=== PATIENT | female | born 1980 | race African-American/Black ===

== ENCOUNTER 2021-03-04 12:32 | Outpatient (CLI) | payer OTHER, SELFPAY ==
--- NOTE | ~2021-03-04 | MM_ITS ---
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 CAD analysis was submitted and interpreted. COMPARISON: No prior mammogram is available for comparison at this institution. BREAST PARENCHYMAL COMPOSITION: The breasts are almost entirely fatty. FINDINGS: There is no evidence of suspicious mass, calcification, or architectural distortion to sugg est malignancy in either breast. There has been no suspicious interval change. IMPRESSION: 1. No mammographic evidence of malignancy. 2. Recommend routine screening mammography in one year. BI-RADS Category 1: Negative Reviewed, dictated and finalized at location A.
== END 2021-03-04 12:33 | disposition home or self-care (01) ==
PROVIDERS: PCP Internal Medicine; Visit Provider Student in an Organized Health Care Education/Training Program
DX: Z12.31 Encounter for screening mammogram for malignant neoplasm of breast (principal)
CPT/HCPCS: 77063; 77067

== ENCOUNTER 2021-11-19 11:00 | Outpatient (RCR) | payer OTHER, SELFPAY ==
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
--- NOTE | 2021-12-04 14:13 | PCPTNOTE ---
Patient no showed to appointment and 20 minutes after appointment to say she couldn't make it due to family emergency.
--- NOTE | 2021-12-11 08:57 | PCPTNOTE ---
Admitting Provider: Attending Provider: Lenin Lorenz, Patient:Bhupinder Fuller Date of :1980 Physical Therapy Discharge Summary Patient has not returned for any further treatments since 11/19/2021, therefore she will be discharged at this time. Patient?s initial visit was on 11/11/2021 10:30 and she had a total of 3 visits. The goals have been not met due to limited therapy visits. Thank you for referring this patient to [facility]. Please review, sign, date and return this discharge summary MONICA. I have been updated about the patient's current status and I agree with discharge from the above service at this time. Referring Physician Date
== END 2021-12-12 09:42 | disposition home or self-care (01) ==
LOC: ANHPT 11:00
PROVIDERS: PCP Internal Medicine; Visit Provider Internal Medicine
DX: M54.50 Low back pain, unspecified (principal)
CPT/HCPCS: 97014; 97110; 97112; 97140; 97161; 97530; G0283

== ENCOUNTER 2022-07-24 13:20 | Outpatient (CLI) | payer OTHER, SELFPAY ==
[2022-07-24 15:03] LABS: HIV 1/2 Ab P24 Ag Result Negative (Negative)
[2022-07-24 15:08] LABS: Hepatitis B Surface Antigen Negative (Negative)
[2022-07-24 15:26] LABS: Hepatitis C Virus Antibody Negative (Negative)
[2022-07-27 09:18] LABS: Rapid Plasma Reagin Non-Reactive (NonReactive)
[2022-07-30 17:34] LABS: HSV 1 IgM Screen Negative (Negative); HSV 2 IgM Screen Negative (Negative)
== END 2022-07-24 13:21 | disposition home or self-care (01) ==
LOC: ANHLAB 13:20
PROVIDERS: PCP Internal Medicine; Visit Provider Student in an Organized Health Care Education/Training Program
DX: Z20.2 Contact with and (suspected) exposure to infections with a predominantly sexual mode of transmission (principal)
CPT/HCPCS: 36415; 86592; 86695; 86696; 86703; 86803; 87340; 87491; 87591; 87661; G0432

== ENCOUNTER 2022-08-26 12:22 | Outpatient (CLI) | payer OTHER, SELFPAY | END 2022-08-26 12:23 | disposition home or self-care (01) | LOC: ANHLAB 12:23 | PROVIDERS: PCP Internal Medicine; Visit Provider Obstetrics & Gynecology | DX: Z00.00 Encounter for general adult medical examination without abnormal findings (principal) | CPT/HCPCS: 36415; 86850; 86900; 86901 ==

== ENCOUNTER 2022-11-05 13:30 | Outpatient (RCR) | payer OTHER, SELFPAY ==
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
--- NOTE | 2022-10-29 12:34 | PCPTNOTE ---
Patient called & cancelled scheduled appointment this date due to not being able to make it.
--- NOTE | 2022-11-05 17:40 | PTOPREEVAL ---
Assessment and note entered by Wes Estrada, PT Evaluation Information Assessment Status Re-evaluation Diagnosis Pain in R knee Onset 1 year ago Subjective Information Patient has had an appointment with her orthopedic doctor since starting therapy ans they write for new orders to focus on the R greater trochanter. Patient now using a straight cane to try to take stress off the RLE. Patient reports it is feeling better, but she thinks the next time she sees her orthopedic doctor they are going to do an injection because of bursitis. Reported Pain Level Pain Score 6: Self Report Assessment PT Clinical Summary Bhupinder is a 42 year old female coming into the clinic with a diagnosis of R knee pain. She was evaluated on October 08, 2022 and has attended 4 session with 2 cancelations. We were slowed down secondary to hip issues which resulted in her seeing her orthopedic doctor. Recommend continued therapy with the input from her orthopedic surgeon. Plan of Care Interventions Electrical Stimulation,Gait Training,Hot Pack/Cold Pack,Manual Therapy,Neuro Re-education,Patient/ Caregiver Education,Therapeutic Activities, Therapeutic Exercise,Ultrasound Other Interventions taping, cupping, and IASTM PT Services Indicated Yes Treatment Frequency and 1x/wk for 6 weeks Duration These treatments will address the objective and functional deficits as defined above. The patient will be advanced safely and appropriately in order for the patient to progress towards his/her prior level of function. Additional exercises will be introduced and as well as a comprehensive home exercise program upon discharge, if needed, ?to ensure carryover of functional gains achieved in the clinic. This treatment plan has been reviewed and agreement upon by the patient.
--- NOTE | 2022-11-17 13:58 | PCPTNOTE ---
Patient called & cancelled scheduled appointment this date due to scheduling conflict
--- NOTE | 2022-12-03 14:34 | PCPTNOTE ---
pt NS her appt today due to confusion with about the schedule.
--- NOTE | 2022-12-21 12:57 | PTOPDC ---
Assessment and note entered by Wes Estrada, PT Evaluation Information Assessment Status Discharge - Pt Not Present Diagnosis Pain in R knee Onset 1 year ago Subjective Information Patient has had an appointment with her orthopedic doctor since starting therapy and they write for new orders to focus on the R greater trochanter. Patient now using a straight cane to try to take stress off the RLE. Patient reports it is feeling better, but she thinks the next time she sees her orthopedic doctor they are going to do an injection because of bursitis. Assessment PT Clinical Summary Bhupinder is a 42 year old female coming to the clinic for VERNON knee pain. She was evaluated on October 08 and attended 4 sessions. Patient has also called in to cancel or no showed another 8 and 1 time respectively. At this time based on decreased progress recommend seeing orthopedic surgeon for less conservative treatments. Discharged from skilled physica therapy. Plan of Care PT Services Indicated No
== END 2022-12-21 14:15 | disposition home or self-care (01) ==
LOC: ANHPT 13:30
PROVIDERS: PCP Internal Medicine; Visit Provider Internal Medicine
DX: M25.561 Pain in right knee (principal)
CPT/HCPCS: 97110; 97140; 97161; 99199

== ENCOUNTER 2023-11-12 10:25 | Outpatient (CLI) | payer OTHER, SELFPAY ==
[2023-11-12 11:36] LABS: Basophils Absolute Auto 0.1 K/mm3 (0.0-0.1); Basophils Percent Auto 1.1 % (0.2-1.2); Eosinophils Absolute Auto 0.1 K/mm3 (0-0.3); Eosinophils Percent Auto 1.7 % (0-4.4); Hematocrit 41.5 % (37.0-47.0); Immature Granulocyte Absolute 0.01 K/mm3 (0.00-0.031); Immature Granulocyte Percent A 0.2 % (0-0.5); Lymphocytes Absolute Auto 2.63 K/mm3 (0.9-3.2); Lymphocytes Percent Auto 56.9 % (18.3-44.2); Mean Corpuscular HGB Conc 31.3 g/dl (32-36); Mean Corpuscular Hemoglobin 26.6 pg (26-34); Mean Platelet Volume 10.7 fl (7.4-10.4); Monocytes Absolute Auto 0.3 K/mm3 (0.1-0.6); Monocytes Percent Auto 5.6 % (2.6-8.5); Neutrophils Absolute Auto 1.6 K/mm3 (1.3-6.7); Neutrophils Percent Auto 34.5 % (45.5-73.1); Platelet Count Result 275 k/mm3 (150-375); Red Blood Count 4.88 M/mm3 (4.2-5.4); Red Cell Distribution Width 14.1 % (11.5-14.5); White Blood Count 4.6 K/mm3 (4.5-10.0)
[2023-11-12 11:47] LABS: Alanine Aminotransferase 15 U/L (6-35); Albumin Level 4.7 g/dL (3.5-5.1); Alkaline Phosphatase 65 U/L (38-126); Anion Gap 9 mmol/L (4-12); Aspartate Amino Transferase 20 U/L (14-36); Bilirubin,Total 0.9 mg/dL (0.2-1.3); Blood Urea Nitrogen 11 mg/dL (7-17); Carbon Dioxide 27 mmol/L (22-30); Chloride 106 mmol/L (98-107); Cholesterol 185 mg/dL (0-200); Estimated Glomerular Filt Rate > 60; Glucose 104 mg/dL (65-110); HDL Direct 37 mg/dL; Sodium 142 mmol/L (137-145); Triglycerides 91 mg/dL (<150)
[2023-11-12 11:59] LABS: LDL Cholesterol Direct 114 mg/dL
[2023-11-12 12:18] LABS: Total Triiodothyronine (T3) 1.13 NG/ML (0.97-1.69)
[2023-11-12 12:58] LABS: Free T4 Free Thyroxine 1.12 ng/mL (0.78-2.19)
== END 2023-11-12 10:26 | disposition home or self-care (01) ==
PROVIDERS: PCP Internal Medicine; Visit Provider Family Medicine
DX: R53.83 Other fatigue (principal); E78.5 Hyperlipidemia, unspecified; I10 Essential (primary) hypertension
CPT/HCPCS: 36415; 80053; 80061; 84439; 84443; 84480; 85025

== ENCOUNTER 2024-05-31 15:12 | Outpatient (CLI) | payer OTHER, SELFPAY ==
[2024-05-31 16:20] LABS: Alanine Aminotransferase 19 U/L (6-35); Albumin Level 4.6 g/dL (3.5-5.1); Alkaline Phosphatase 68 U/L (38-126); Anion Gap 9 mmol/L (4-12); Aspartate Amino Transferase 20 U/L (14-36); Bilirubin,Total 0.9 mg/dL (0.2-1.3); Blood Urea Nitrogen 12 mg/dL (7-17); Calcium 9.7 mg/dL (8.4-10.2); Carbon Dioxide 30 mmol/L (22-30); Chloride 102 mmol/L (98-107); Estimated Glomerular Filt Rate > 60; Glucose 134 mg/dL (65-110); Potassium 3.5 mmol/L (3.4-5.0); Sodium 141 mmol/L (137-145)
== END 2024-05-31 15:13 | disposition home or self-care (01) ==
LOC: ANHLAB 15:15
PROVIDERS: PCP Internal Medicine; Visit Provider Family Medicine
DX: I10 Essential (primary) hypertension (principal)
CPT/HCPCS: 36415; 80053

== ENCOUNTER 2024-11-15 14:14 | Outpatient (CLI) | payer OTHER, SELFPAY ==
--- NOTE | ~2024-11-15 | MM_ITS ---
EXAMINATION: MM screening chandler BI w elif HISTORY: Screening TECHNIQUE: Craniocaudal and mediolateral oblique 3-D tomosynthesis images were obtained and synthetic 2-D images were generated. CAD analysis was submitted and interpreted. COMPARISON: 03/04/2021 BREAST PARENCHYMAL COMPOSITION: Not dense: There are scattered areas of fibroglandular density. FINDINGS: There is no evidence of suspicious mass, calcification, or architectural distortion to sugg est malignancy in either breast. There has been no suspicious interval change. IMPRESSION: 1. No mammographic evidence of malignancy. 2. Recommend routine screening mammography in one year. BI-RADS Category 1: Negative Reviewed, dictated and finalized at location A.
--- OUTSIDE RECORDS SUMMARY | 2024-11-15 15:55 | XMS_ITS | Clinical Summary ---
Author Organization [facility] Health Address [address] [place] [address] Care Team Providers Care Lead Neurodiagnostic Technologist Name Role Phone Unavailable Primary Care Provider Unavailabl e Source Comments [facility],non-owned Affiliates and Associated Physician Practices is amultiple site organization consisting of ambulatory clinics and hospital sitesin [place], [place], [place] and [place]. This disclosure is being madepursuant to the Care Everywhere program and may not contain all information available regarding this patient. Last updated 18.[facility] [employer] Allergies No known active allergies Medications * Be aware that medications may not be up to date on this document. Alwaysverify current medications with the patient. Medication Sig Dispensed Refills Start Date End Date Status acetaminophen-codein e (TYLENOL #3) 300-30 MG tablet TK 1 T PO TID PRN 2 12/02/2018 A ctive baclofen (LIORESAL) 10 MG tablet TK 1 T PO BID 2 09/30/2018 Active betamethasone dipropionate (DIPROSONE) 0.05 % cream PRESTON THIN LAYER EXT AA QD 2 09/30/2018 Active clotrimazole (LOTRIMIN AF) 1 % cream PRESTON EXT TO THE AFFECTED AND SURROUNDING AREAS BID IN THE MORNING AND IN THE EVANS 2 09/30/2018 Active fluticasone-salmeter ol 113-14 MCG/ACT inhaler INL 1 PUFF PO BID 12 H APART AND AT THE SAME TIME QD 3 11/11/2018 Active gabapentin (NEURONTIN) 300 MG capsule 0 11/08/2018 Active lactulose (CHRONULAC) 10 GM/15ML solution TK 15 ML PO QD 4 08/19/2018 Acti ve VIENVA 0.1-20 MG-MCG tablet TK 1 T PO QD 1 11/13/2018 Active montelukast (SINGULAIR) 10 MG tablet TK 1 T PO QD 2 09/30/2018 Active oseltamivir (TAMIFLU) 75 MG capsule TK 1 C PO QD 0 09/30/2018 Active ibuprofen (MOTRIN) 800 MG tablet Take 1 tablet by mouth every 8 hours as needed for Pain 60 tablet 12/07/2018 Active Active Problems No known active problems Social History Tobacco Use Types Packs/Day Years Used Date Smoking Tobacco: Never Smokeless Tobacco: Never Sex and Gender Information Value Date Recorded Sex Assigned at Not on file Gender Identity Not on file Sexual Orientation Not on file Last Filed Vital Signs Vital Sign Reading Time Taken Comments Blood Pressure - - Pulse - - Temperature - - Respiratory Rate - - Oxygen Saturation - - Inhaled Oxygen Concentration - - Weight 119.3 kg (263 lb) 12/07/2018 12:05 PM CDT Height 175.3 cm (5' 9 ) 12/07/2018 12:05 PM CDT Body Mass Index 38.84 12/07/2018 12:05 PM CDT Plan of Treatment Health Maintenance Due Date Last Done Comments COLOGUARD (AGES 45-75) - COL ON CA SCREENING 1980 COLON MONITORING 1979 COLONOSCOPY - COLON CA SCREENING 1979 CT COLONOGRAPHY - COLON CA SCREENING 1979 Colorectal Cancer Screening 1979 FIT - COLON CA SCREENING 1979 FLEX SIG - COLON CA SCREENING 1979 LIPID TESTING 1980 MAMMOGRAM 1979 PAP SMEAR 1979 HIV SCREENING 1994 HEPATITIS C SCREENING 04/11/1997 DTAP/TDAP/TD VACCINES (1 - Tdap) 1998 HEPATITIS B VACCINE (1 of 3 - 19+ 3-dose series) 1998 COVID-19 VACCINE ( - 2023-2 5 season) 2024 DEPRESSION SCREENING 08/09/2024 INFLUENZA VACCINE (Season Ended) 2025 ZOSTER VACCINE (1 of 2) 2029 HIB VACCINE Aged Out No longer eligi ble based on patient's age to complete this topic HPV VACCINE Aged Out No longer eligi ble based on patient's age to complete this topic MENINGOCOCCAL (Group B) VACC INE SHARED DECISION-MAKING Aged Out No longer eligibl e based on patient's age to complete this topic MENINGOCOCCAL GROUPS A/C/Y/W VACCINE Aged Out No longer eligible b ased on patient's age to complete this topic PNEUMOCOCCAL VACCINE Aged Out No long er eligible based on patient's age to complete this topic
--- OUTSIDE RECORDS SUMMARY | 2024-11-15 15:56 | XMS_ITS | Data Portability ---
Author Organization [place] [facility] [employer], Main Office Address [address] [place] [address] Care Team Providers Care Audit Specialist Name Role Phone ORIANA SEO Primary Care Provider [phone] ORIANA SEO Referring Provider Assessment Encounter Date Assessment Date Assessment LastModified by Organization Details LastModified Time 10/22/2022 10/22/2022 HPI: 42-year-old female came in today for evaluation of her right lateral hip pain. She states she has been having pain for about a year. It has progressively gotten worse. All pain is over the lateral aspect of the right hip. She is having no groin pain. No leg pain. No buttock pain. She is on no anti-inflammator ies. She got some Tylenol threes from her primary care doctor and she will use this intermittently. 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 She does not go up and down the stairs at home because it is uncomfortable. She has pain when she tries to sleep on the right side at night. She has had no injuries or trauma in the past to the hip. Patient started physical therapy and has only been to 2 sessions at this point. Physical exam: 42-year-old female alert. She walks with mild limp due to pain in right hip. She is 5 ft 9 281 lb and her BMI is 41.5. Her right hip flexes to 100 externally rotates to 40 internally rotates to 20 with some mild pain in the lateral hip. Has difficulty doing Stinchfield maneuver due to pain laterally. She has moderate to severe tenderness over trochanteric bursa palpation. She has [id number] weakness with abductor testing associated with with moderate to severe pain. Patient has very large legs and they are quite heavy which I think is contributing to her pain with strength testing. impression: Patient has lateral hip pain /trochanteric bursitis of the right hip. She has already started in therapy given her our protocol for bursitis so that she can have this give to the therapist to work on with her. She is miserable with pain. I recommended giving her a Medrol Dosepak and once this is done to start her on Voltaren 75 mg b.i.d.. We will give her a cane today to use to help take some stress off of the right hip. We will see how these measures do for her and see her back in a month. Not available 10/22/2022 12:06:37 12/03/2022 12/03/2022 HPI: Patient returns. She is here for re-evaluation of her right lateral hip pain. She with physical therapy. She took the Medrol Dosepak as well as the diclofenac. At this point her symptoms are minimal. She has been using the cane but not consistently. She does not feel she needs it at this point. She continues to do home exercise program. She still is in therapy now. Physical exam: 42-year-old female alert pleasant. She walks well today without limp. She has just some mild tenderness to palpation of the right lateral hip. No pain with range of motion of the right hip. She has only very mild weakness with abductor testing in the lateral position associated with mild pain. Impression: Patient's right lateral pain / trochanteric bursitis seems to be improving. Therapy is helping. She wishes to continue with therapy and written order to do so. Recommended she continue her home exercise program. She is going to continue to work weight loss as well. This will be beneficial for. We will see her back as needed. Not available 12/03/2022 10:47:56 Plan of Treatment Reminders Order Date Submit Date Provider Last Modified By Organization Details Last Modified Time Details Appointments None recorded. Lab None recorded. Referral None recorded. Procedures None recorded. Surgeries None recorded. Imaging XR, hip + pelvis, unilateral 2022 023 [email or web address], [address] [place] [address], [place], [address], 16:03:18 Medication Orders None recorded. Patient TargetsNo targets recorded. Patient InstructionsNo instructions recorded. Reason for Referral None Reported. Results Created Date Observation Date Name Description Value Unit Range Abnormal Flag Note LastModifiedBy Organization Detail LastModifiedTime 09/25/1910/12/2021 XR, lumba r spine No observ ation record ed. [id number] Not Available 10/07/2022 13:31:52 09/25/1907/17/2021 XR, lumba r spine No observ ation record ed. [email or web address]. [id number] Not Available 10/07/2022 13:31:52 09/25/19 23 07/17/2021 XR, sacru m + coccy x No observ ation record ed. MIGRATION. [id number] Not Available 10/07/2022 13:31:52 09/25/19 23 12/03/2017 XR, shoul madisyn No observ ation record ed. MIGRATION. [id number] Not Available 10/07/2022 13:31:52 09/25/19 23 04/19/2017 XR, hip + pelvi s, unila teral , 2 or 3 view No observ ation record ed. MIGRATION. [id number] Not Available 10/07/2022 13:31:52 09/25/19 23 04/19/2017 XR, knee, 3 view No observ ation record ed. MIGRATION. [id number] Not Available 10/07/2022 13:31:52 09/25/19 23 04/19/2017 XR, femur , 2 or more view No observ ation record ed. MIGRATION. [id number] Not Available 10/07/2022 13:31:52 09/25/1907/15/2022 XR, knee, 1 or 2 view No observ ation record ed. MIGRATION. [id number] Not Available 10/07/2022 13:31:52 10/23/19 XR, hip + pelvi s, unila teral No observ ation record ed. [email or web address] [address], [place], [address], 10/22/2022 12:02:45 Result Notes None recorded. Problems Name Problem SNOMED Code Status Onset Date Resolution Date Notes Provider Name and Address Organization Details Recorded Time Knee pain Active Not Available [facility] 3 13:30:18 Pain in right hip joint 1649639550607 02 Active 2022 Kaci Sujit, RMA null, [place] [employer] [facility] [facility] 3 10:53:58 Trochanter ic bursitis of right hip 9386567441120 00 Active 2022 Katlin Por, CHIE[employer] null, [place] [employer] [facility] [employer] [facility] 3 12:13:34 Problem Notes None recorded. Procedures Surgical History None recorded. Imaging Results Imaging Date Name Status LastModified by Organiz ation Details LastModified Time 10/12/2021 XR, lumbar spine completed [id number] Information not available 10/07/2022 13:31:52 07/17/2021 XR, lumbar spine completed [id number] Information not available 10/07/2022 13:31:52 07/17/2021 XR, sacrum + coccyx completed [id number] Information not available 10/07/2022 13:31:52 12/03/2017 XR, shoulder completed [id number] Information not available 10/07/2022 13:31:52 04/19/2017 XR, hip + pelvis, unilateral, 2 or 3 view completed [id number] Information not available 10/07/2022 13:31:52 04/19/2017 XR, knee, 3 view completed [id number] Information not available 10/07/2022 13:31:52 04/19/2017 XR, femur, 2 or more view completed [id number] Information not available 10/07/2022 13:31:52 07/15/2022 XR, knee, 1 or 2 view completed [id number] Information not available 10/07/2022 13:31:52 10/22/2022 XR, hip + pelvis, unilateral completed [email or web address] [address], [place], [address], 10/22/2022 12:02:45 Procedure Notes None recorded. Medical Equipment None Reported. Allergies No known drug allergies Medications Name Sig Start Date Stop Date Status Note LastModified by Organization Details LastModified Time multivitami n tablet 10/06 completed Not Available Not Available Not Available amoxicillin 500 mg capsule TAKE 2 CAPSULES BY MOUTH IMMEDIATE LY THEN TAKE 1 CAPSULE BY MOUTH FOUR TIMES DAILY UNTIL ALL TAKEN 12/03 completed Not Available Not Available Not Available gabapentin 600 mg tablet TAKE 1 TABLET BY MOUTH THREE TIMES DAILY DIRECTED 12/03 completed Not Available Not Available Not Available albuterol sulfate 2.5 mg/3 mL (0.083 %) solution for nebulizatio n USE 3 ML VIA NEBULIZER THREE TIMES DAILY active Not Available Not Available No t Available ibuprofen 800 mg tablet 10/06 completed Not Available Not Available Not Available tizanidine 4 mg tablet TAKE 1 TABLET BY MOUTH EVERY 6 HOURS DIRECTED active Not Available Not Available No t Available hydrocodone 5 mg-acetamin ophen 325 mg tablet take 1 tablet po q 4hr prn pain active Not Available Not Available No t Available meloxicam 15 mg tablet TAKE 1 TABLET BY MOUTH EVERY DAY AFTER A MEAL active Not Available Not Available No t Available prednisone 20 mg tablet 10/06 completed Not Available Not Available Not Available acetaminoph en 300 mg-codeine 30 mg tablet TAKE 1 TABLET BY MOUTH THREE TIMES DAILY FOR 10 DAYS NEEDED active Not Available Not Available No t Available tramadol 50 mg tablet 10/06 completed Not Available Not Available Not Available triamcinolo ne acetonide 0.1 % topical cream 10/06 completed Not Available Not Available Not Available ketorolac 10 mg tablet 10/06 completed Not Available Not Available Not Available baclofen 10 mg tablet TAKE 1 TABLET BY MOUTH TWICE DAILY NEEDED active Not Available Not Available No t Available lisinopril 10 mg tablet TAKE 1 TABLET BY MOUTH EVERY DAY AROUND THE CLOCK active Not Available Not Available No t Available betamethaso ne dipropionat e 0.05 % topical cream 10/06 completed Not Available Not Available Not Available diclofenac sodium 75 mg tablet,tricia yed release TAKE 1 TABLET BY MOUTH TWICE DAILY active Not Available Not Available No t Available montelukast 10 mg tablet TAKE 1 TABLET BY MOUTH EVERY DAY active Not Available Not Available No t Available methylpredn isolone 4 mg tablets in a dose pack FOLLOW PACKAGE DIRECTION S 12/03 completed Not Available Not Available Not Available albuterol sulfate HFA 90 mcg/actuati on aerosol inhaler INHALE 2 PUFFS BY MOUTH EVERY 4 HOURS NEEDED active Not Available Not Available No t Available clotrimazol e 1 % topical cream APPLY DIRECTED TWICE DAILY NEEDED active Not Available Not Available No t Available naproxen 500 mg tablet 10/06 completed Not Available Not Available Not Available amoxicillin 875 mg-whitney m clavulanate 125 mg tablet 10/06 completed Not Available Not Available Not Available tobramycin 0.3 %-dexametha sone 0.1 % eye drops,suspe nsion 10/06 completed Not Available Not Available Not Available metoprolol tartrate 25 mg tablet TAKE 1 TABLET BY MOUTH TWICE DAILY active Not Available Not Available No t Available nitrofurant oin monohydrate /macrocryst als 100 mg capsule 10/06 completed Not Available Not Available Not Available duloxetine 60 mg capsule,del ayed release TK 1 C PO QD 10/06 completed Not Available Not Available Not Available Oysco 500/D 500 mg-5 mcg (200 unit) tablet TAKE 1 TABLET BY MOUTH TWICE DAILY active Not Available Not Available No t Available AirDuo Digihaler 113 mcg-14 mcg/actuati on breath act,powder sensor INHALE 1 PUFF BY MOUTH TWICE DAILY AROUND THE CLOCK active Not Available Not Available No t Available BinaxNOW COVID-19 Ag Self Test kit TEST DIRECTED TODAY 12/03 completed Not Available Not Available Not Available Vitals Date Recorded Body height Body mass index (BMI) Body weight Provider Name and Address Organization Details Last Updated DateTime 10/22/2022 175.26 cm 41.5 kg/m2 430199.46 g Kaci Sujit Roxie [facility] [employer] 10/22/2022 11:37:42 Date Recorded Body height Provider Name an d Address Organization Details Last Updated DateTime 12/03/2022 175.26 cm Kaci Beckett [facility] 12/03/2022 10:31:46 Social History None recorded. Functional Status None recorded. Mental Status None recorded. Family History Nothing Reported. Medical History No medical history recorded. Gynecological HistoryNo gynecological history recorded. Obstetrics History GPAL:G 0 P 0 0 0 0 Past Encounters Encounter ID Performer Location Encounter Start Date Encounter Closed Date Diagnosis/Indication Diagnosis SNOMED-CT Code Diagnosis ICD10 Code Diagnosis Note [id number] MELISA Leyva [facility] [address] [address] 10/22/2022 10:28:32 10/22/2022 12:12:35 Pain in right hip joint [id number] 02698 M25.551 [id number] MELISA Leyva[facility] [address] [address] 12/03/2022 10:27:32 12/03/2022 10:53:11 Trochanteric bursitis of right hip 2902530515 43819 M70.61 Health Concerns Section Related Observation LastModified by Organization Detai ls LastModified Time None Recorded Concern Status LastModified by Organization Details LastModified Time None Recorded Advance Directives Directive None Recorded Payers Encounter Date Sequence Insurance Name Policy Number Policy Raymond Covered Member ID Raymond Member ID Guarantor Name 10/22/[address] [facility] ON OR AFTER 02/06/21 (MEDICAID REPLACEMENT - HMO) Bhupinder Fuller [id number] Bhupinder Fuller 12/03/[address] [facility] ON OR AFTER 02/06/21 (MEDICAID REPLACEMENT - HMO) Bhupinder Fuller [id number] Bhupinder Fuller OBGyn Episode No OBEpisode recorded.
--- OUTSIDE RECORDS SUMMARY | 2024-11-15 15:56 | XMS_ITS | Continuity of Care Document ---
Author Organization [facility] Address [address] [place] [address] [place] [address] Phone Care Team Providers Care Glost Tile Shader Name Role Phone George Goodman MD Unavailable Unavailable Allergies, Adverse Reactions, Alerts Substance Reaction Status Criticality No Known Allergies Active No Inform ation Procedures Procedure Date OFFICE/OUTPATIENT VISIT, [facility] Advance Directives Directive Yes / No Effective Date File Name No Information Encounters Encounter Description Practice Location Reason(s) For Visit Diagnoses Date Provider Providers Copied on Encounter OFFICE/OUTPAT IENT VISIT, [facility], [address], [place], [id number], [place] tel:[phone] [facility] back pain (chief complaint) LumbagoPain in joint involving lower leg Rex Vazquez. [address], [address] [place], [id number], [place]. tel:[phone] Family History Family Member Type Diagnosis Age At Onset Brother Problem (finding) Alive and well Father Problem (finding) Unknown Disease Mother Problem (finding) Stroke Payers Payer name Insurance type Covered republican ID Authoriza tion(s) No Information Social History Type Description Quantity Date Captured Comments Alcohol Use Details No Caffeine Use Details Unknown Tobacco Use Status No Information Smoking Status Never smoker Non-Smoking Tobacco Use Details : No Details Available : No Details Available Sex Female Vital Signs Date / Time: Height Weight BMI Pulse Rate Blood Pressure Temperature Respiratory Rate Body Surface Area Head Circumference BMI percentile Pulse Ox Inhaled Ox 3:09 PM 69.00 in 255.00 lbs 37.6 5 kg/m eter (2) 99 /min 135/81 mm[Hg] 96.1 F 18 /min Chief Complaint And Reason For Visit From encounter dated 11/10/2013 14:45'. back pain (chief complaint) Plan Of Treatment Date Type Action Status Referral Ordered: HIP XRAY AP/LAT Bilateral ordered History Of Present Illness Encounter Date Complaint History Of Prese nt Illness No Information Instructions Date Instruction Additional Infor mation No Information Assessments Type Assessment Date No Information Mental Status Date Cognitive Assessment Orientation - [place] ed to time, place, person, situation.
--- OUTSIDE RECORDS SUMMARY | 2024-11-15 15:56 | XMS_ITS | CONTINUITY OF CARE DOCUMENT ---
Author Name mariela sierra Address Unknown Organization [facility] Address [address] [place] [address] Phone [phone] Care Team Providers Care Pulmonologist Name Role Phone Newton Wong MD Unavailable ORIANA SEO MD Unavailable [phone] ORIANA SEO MD Unavailable [phone] PROBLEMS Condition Status Date Provider Notes Back pain active Newton Wong MD Palpitations active Newton Wong MD Family History of Hypertension: active ? Jevon Wong MD Family History of CVA or Stroke: active ? Newton Wong MD CHEST PAIN-TYPE TO BE DETERMINED completed - Newton Wong MD ENCOUNTERS Date Type Provider Location Encounter Diag nosis - In-person encounter Office Visit Newton Wong MD [facility] Back pain - In-person encounter Office Visit Newton Wong MD [facility] - In-person encounter Office Visit Newton Wong MD [facility] - In-person encounter Office Visit Newton Wong MD [facility] CHEST PAIN-TYPE TO BE DETERMINEDFamily History of CVA or Stroke:Family History of Hypertension:Palpitation s - In-person encounter Office Visit Nweton Wong MD [facility] VITAL SIGNS Date Observation Value Provider Body Mass Index (Ratio) 39.72 kg/m2 Jevon Wong MD respiratory rate E&M 16 /min Dari Schultz oxygen saturation, oximetry 98 % Dari Schultz pulse rate 95 /min Dari marie blood pressure, cuff size regular Cy shell Schultz blood pressure, diastolic 70 mm[Hg] Cy shell Schultz blood pressure, systolic 128 mm[Hg] Shireen mayela Schultz weight E&M 269 [lb_av] Dari marie height E&M 69 [in_i] Dari marie Body Mass Index (Ratio) 40.75 kg/m2 Jevon Wong MD blood pressure, resting No Flor Paniagua Black blood pressure, diastolic 88 mm[Hg] Fritz Black blood pressure, systolic 134 mm[Hg] Viviane Black oxygen saturation, oximetry 100 % Estefanía Black respiratory rate E&M 18 /min FlorSelena donal Black pulse rate 83 /min Estefanía Siddiqui francesco weight E&M 276 [lb_av] Estefanía Siddiqui francesco height E&M 69 [in_i] Estefanía Siddiqui francesco Body Mass Index (Ratio) 38.54 kg/m2 Esha vivek Ojeda blood pressure, diastolic 87 mm[Hg] Anil Ojeda blood pressure, systolic 131 mm[Hg] Naun Ojeda pulse rate 88 /min July Ojeda oxygen saturation, oximetry 99 % July Ojeda respiratory rate E&M 17 /min July Ojeda weight E&M 261 [lb_av] July Ojeda Body Mass Index (Ratio) 38.39 kg/m2 Bill Guillaume blood pressure, diastolic 80 mm[Hg] Vj Lutzneedwarluann blood pressure, systolic 122 mm[Hg] Kennedy chung Bolivarroxieluann pulse rate 80 /min Carley Velazquez lder oxygen saturation, oximetry 99 % Carley Guillaume respiratory rate E&M 16 /min Carley Tuttle fridadannieluann weight E&M 260 [lb_av] Carley Velazquez lder blood pressure, diastolic 80 mm[Hg] Roseline seph Manacop blood pressure, systolic 126 mm[Hg] Milind eph [place]op blood pressure, diastolic 84 mm[Hg] Santos Conrad blood pressure, systolic 129 mm[Hg] Pepe Conrad pulse rate 99 /min Felipe Conrad oxygen saturation, oximetry 94 % Felipe Conrad respiratory rate E&M 16 /min Felipe oCnrad weight E&M 243.01 [lb_av] Felipe Mainr an height E&M 69 [in_i] Felipe Conrad ALLERGIES Allergy Name Onset Date Reaction Criticality Status OXYCODONE Low Criticality active HISTORY OF MEDICATION USE Medication Status Instructions Dates Provider Indications Com ments B-12 1000 MCG ORAL CAPSULE active Take 1 tablet daily Dari Schultz THIAMINE HCL TABLET active Take 1 tablet daily Dari Schultz MONTELUKAST SODIUM 10 MG ORAL TABLET active TAke 1 tablet once a day Dari Schultz GABAPENTIN 300 MG ORAL CAPSULE active TAke 1 capsule three times a day Dari Schultz BREO ELLIPTA 100-25 MCG/INH INHALATION AEROSOL POWDER BREATH ACTIVATED active TAke 1 puff twice a day Dari Schultz BETAMETHASONE DIPROPIONATE AUG LOTION active Apply as directed Dari Schultz BACLOFEN 10 MG ORAL TABLET active Take 1 tablet twice daily as needed Dari Schultz ACETAMINOPHEN-CO DEINE 300-15 MG ORAL TABLET active TAke 1 tablet three times daily as needed Dari Schultz ALBUTEROL SULFATE 1.25 MG/3ML INHALATION NEBULIZATION SOLUTION active as directed Estefanía Black ALBUTEROL SULFATE TABLET active as directed Estefanía Black DEPO-SUBQ PROVERA 104 104 MG/0.65ML SUBCUTANEOUS SUSPENSION PREFILLED SYRINGE completed injection monthly - Carley Guillaume SOCIAL HISTORY Date Observation Value Provider social history E&M Marital Statu s: Single L gris with family/friends E thnicity: P nilo has never smoked. Smoking History: Alvarado corcoran has never smoked. Newton Wong MD social history reviewed E&M i ewed - no changes required Newton Wong MD physical exercise, f requency, days per week 1 /wk Dari Schultz alcohol use, average drinks per day social Dari Schultz alcohol use yes Dari marie caffeine use, averag e drinks per day yes Dari Schultz drug use no Dari marie passive cigarette sm anjali exposure yes Dari Schultz smoking status Never smoker Dari lancaster number of grandchildren Newton Wong MD U aminah Wong MD social history reviewed E&M haresh ewed - no changes required Newton Wong MD physical exercise, f requency, days per week 1 /wk Estefanía Black alcohol use, average drinks per day social Estefanía Black alcohol use yes Estefanía maya caffeine use, averag e drinks per day yes Estefanía Black drug use no Estefanía maya passive cigarette sm anjali exposure yes Estefanía Black smoking status Never smoker Estefanía Brunner physical exercise, f requency, days per week 1 /wk Newton Wong MD alcohol use, average drinks per day social Newton Wong MD alcohol use yes Newton Wong MD caffeine use, averag e drinks per day yes Newton Wong MD drug use no Newton Wong MD passive cigarette sm anjali exposure yes Newton Wong MD smoking status Never smoker Newton Wong MD social history reviewed E&M revi ewed - no changes required Newton Wong MD social history E&M Marital Statu s: Single L gris with family/friends E thnicity: P atria has never smoked. Smoking History: P nilo has never smoked. Newton Wong MD social history reviewed E&M revi ewed - no changes required Newton Wong MD alcohol use, average drinks per day social Carley Guillaume alcohol use yes Carley duarte smoking status Never smoker Newton Wong MD smoking status quit Wilfredo lopez physical exercise, f requency, days per week 1 /wk Newton Wong MD passive cigarette sm anjali exposure yes Newton Wong MD social history E&M Marital Statu s: Single L gris with family/friends E thnicity: Newton Wong MD drug use no Newton Wong MD social history reviewed E&M reviewed Newton Wong MD smoking status never smoker Felipe saldivar physical exercise, f requency, days per week yes [employer] caffeine use, averag e drinks per day yes [employer] alcohol use, average drinks per day none [employer] smoking status Non-smoker [employer] FUNCTIONAL STATUS Date Observation Value Provider periodic limb movement index absent (0) Wilfredo Olvera MENTAL STATUS Date Observation Value Provider assessment of judgme nt and insight E&M Alert and oriented to time, place and person. Mood and affect are normal. Newton Wong MD FAMILY HISTORY Family Member Condition Father Family History of Al coholism: Mother Family History of Hy pertension: Mother Family History of Di abetes: Mother Family History of CV A or Stroke: INSURANCE PROVIDERS Payer name Policy type / Coverage type [place] [employer] [place] [employer] MEDICAID (2) Medicaid [id number] ADVANCE DIRECTIVES Name Date DISCUSSED - NO DECISION MADE TREATMENT PLAN Date Name Performer Cardiology follow up :Per Dr. Tomas shipley. Newton Wong MD Cardiology follow up :No further workup required. Newton Wong MD Cardiology Newton Wong MD follow,echo Newton Wong MD Date Name Complete Echo Holter Monitor 24 Hr Stress Test - Routin e Complete Echo HISTORY OF PROCEDURES Procedure Date Procedure Name Provider Procedure Notes S tatus EKG Newton Wong MD completed SNOMED-CT: [id number] Physical Exam, Performed: Pulse Exam of Foot Newton Wong MD completed EKG Newton Wong MD completed SNOMED-CT: 256011570 [id number] Current Medications Documented Newton Wong MD completed EKG Newton Wong MD completed EKG Newton Wong MD completed
== END 2024-11-15 14:15 | disposition home or self-care (01) ==
LOC: ANHIMG 14:16
PROVIDERS: PCP Family Medicine; Visit Provider Family Medicine
DX: Z12.31 Encounter for screening mammogram for malignant neoplasm of breast (principal)
CPT/HCPCS: 77063; 77067

== ENCOUNTER 2025-01-06 07:20 | Outpatient (CLI) | payer OTHER, SELFPAY ==
--- NOTE | ~2025-01-06 | XR_ITS ---
EXAMINATION: XR chest 2V 01/06/2025 08:04 INDICATION: Cough PROCEDURE: 2 view chest COMPARISON: 06/17/2011 FINDINGS: The lungs are clear. The cardiomediastinal silhouette is within normal limits. There are no pleural effusions. There is no pneumothorax suspected. IMPRESSION: 1: NO ACUTE CARDIOPULMONARY DISEASE. Reviewed, dictated and finalized at location A.
--- OUTSIDE RECORDS SUMMARY | 2025-01-06 07:24 | XMS_ITS | Clinical Summary ---
Author Organization [facility] Health Address [address] [address] Care Team Providers Care Prescription Clerk Lenses Name Role Phone Unavailable Primary Care Provider Unavailabl e Source Comments [facility],non-owned Affiliates and Associated Physician Practices is amultiple site organization consisting of ambulatory clinics and hospital sitesin [place], [place], [place] and [place]. This disclosure is being madepursuant to the Care Everywhere program and may not contain all information available regarding this patient. Last updated 18.[facility] Crush on original products Allergies No known active allergies Medications * Be aware that medications may not be up to date on this document. Alwaysverify current medications with the patient. acetaminophen-co deine (TYLENOL #3) 300-30 MG tablet TK 1 T PO TID PRN 2 9 Active baclofen (LIORESAL) 10 MG tablet TK 1 T PO BID 2 9 Active betamethasone dipropionate (DIPROSONE) 0.05 % cream PRESTON THIN LAYER EXT AA QD 2 9 Active clotrimazole (LOTRIMIN AF) 1 % cream PRESTON EXT TO THE AFFECTED AND SURROUNDING AREAS BID IN THE MORNING AND IN THE EVANS 2 9 Active fluticasone-salm eterol 113-14 MCG/ACT inhaler INL 1 PUFF PO BID 12 H APART AND AT THE SAME TIME QD 3 9 Active gabapentin (NEURONTIN) 300 MG capsule 0 9 Active lactulose (CHRONULAC) 10 GM/15ML solution TK 15 ML PO QD 4 9 Active VIENVA 0.1-20 MG-MCG tablet TK 1 T PO QD 1 9 Active montelukast (SINGULAIR) 10 MG tablet TK 1 T PO QD 2 9 Active oseltamivir (TAMIFLU) 75 MG capsule TK 1 C PO QD 0 9 Active ibuprofen (MOTRIN) 800 MG tablet Take 1 tablet by mouth every 8 hours as needed for Pain 60 tablet 9 Active Active Problems No known active problems Social History Tobacco Use Types Packs/Day Years Used Date Smoking Tobacco: Never Smokeless Tobacco: Never Comments Unknown Sex and Gender Information Value Date Recorded Sex Assigned at Not on file 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
--- OUTSIDE RECORDS SUMMARY | 2025-01-06 07:24 | XMS_ITS | Data Portability ---
Author Organization [place] [facility] [employer], Main Office Address [address] [place] [address] Care Team Providers Care Trimmer And Borer Machine Operator Name Role Phone ORIANA SEO Primary Care Provider ORIANA SEO Referring Provider Assessment Encounter Date [...] tenderness over trochanteric bursa palpation. She has nfli-ea-zuzeiyar weakness with abductor testing associated with with [...] pelvis, unilateral 2022 023 [email or web address] [place], [address] [place] [address], [place], [address], 16:03:18 Medication Orders None recorded. Patient TargetsNo targets recorded. Patient InstructionsNo instructions recorded. Reason for Referral None Reported. Results Created Date Observation Date Name Description Value Unit Range Abnormal Flag Note LastModifiedBy Organization Detail LastModifiedTime 09/25/1910/12/2021 XR, lumba r spine No observ ation record ed. [id number] Not Available 10/07/2022 13:31:52 09/25/1907/17/2021 XR, lumba r spine No observ ation record ed. [email or web address]. [id number] Not Available 10/07/2022 13:31:52 09/25/19 23 07/17/2021 XR, sacru m + coccy x No observ ation record ed. [email or web address]. [id number] Not Available 10/07/2022 13:31:52 09/25/19 23 12/03/2017 XR, shoul madisyn No observ ation record ed. [email or web address]. [id number] Not Available 10/07/2022 13:31:52 09/25/19 23 04/19/2017 XR, hip + pelvi s, unila teral , 2 or 3 view No observ ation record ed. [email or web address]. [id number] Not Available 10/07/2022 13:31:52 09/25/19 23 04/19/2017 XR, knee, 3 view No observ ation record ed. [email or web address]. [id number] Not Available 10/07/2022 13:31:52 09/25/19 23 04/19/2017 XR, femur , 2 or more view No observ ation record ed. [email or web address]. [id number] Not Available 10/07/2022 13:31:52 09/25/1907/15/2022 XR, knee, 1 or 2 view No observ ation record ed. [email or web address]. [id number] Not Available 10/07/2022 13:31:52 10/23/19 XR, hip + pelvi s, unila teral No observ ation record ed. [email or web address] [address], [place], [address], 10/22/2022 12:02:45 Result Notes None recorded. Problems Name Problem SNOMED Code Status Onset Date Resolution Date Notes Provider Name and Address Organization Details Recorded Time Knee pain Active Not Available [facility] 3 13:30:18 Pain of right hip joint 0312047443295 02 Active 2022 Kaci Sujit RMRoxie null, [facility] 3 10:53:58 Trochanter ic bursitis of right hip 9523780963059 00 Active 2022 Katlin Pro CMA null, [facility] 3 12:13:34 Problem Notes None recorded. Medical Equipment None Reported. [...] Available Not Available Not Available amoxicillin 875 mg-potassiu m clavulanate 125 mg tablet 10/06 completed [...] Updated DateTime 10/22/2022 175.26 cm 41.5 kg/m2 022153.46 g RAVIN Kelley Dalia [place] [employer] [facility] 10/22/2022 11:37:42 Date Recorded Body height Provider Name an d Address Organization Details Last Updated DateTime 12/03/2022 175.26 cm RAVIN Kelley [place] [employer] [facility] 12/03/2022 10:31:46 Social History None recorded. Functional Status None recorded. Mental Status None recorded. Family History Nothing Reported. Medical History No medical history recorded. Gynecological HistoryNo gynecological history recorded. Obstetrics History GPAL:G 0 P 0 0 0 0 Past Encounters Encounter ID Performer Location Encounter Start Date Encounter Closed Date Diagnosis/Indication Diagnosis SNOMED-CT Code Diagnosis ICD10 Code Diagnosis Note [id number] Galileo Sandoval MD [facility] [address] [address] 10/22/2022 10:28:32 10/22/2022 12:12:35 Pain of right hip joint 2465789666 76877 M25.551 [id number] Galileo Sandoval MD [facility] [address] [address] 12/03/2022 10:27:32 12/03/2022 10:53:11 Trochanteric bursitis of right hip 2207915052 33284 M70.61 Health Concerns Section Related Observation LastModified by Organization Detai ls LastModified Time None Recorded Concern Status LastModified by Organization Details LastModified Time None Recorded Advance Directives Directive None Recorded Payers Encounter Date Sequence Insurance Name Policy Number Policy Raymond Covered Member ID Raymond Member ID Guarantor Name 10/22/2022 1 [facility] ON OR AFTER 02/06/21 (MEDICAID REPLACEMENT - HMO) Bhupinder Fuller [id number] Bhupinder Fuller 12/03/2022 1 [facility] ON OR AFTER 02/06/21 (MEDICAID REPLACEMENT - HMO) Bhupinder Fuller [id number] Bhupinder Fuller OBGyn Episode No OBEpisode recorded.
--- OUTSIDE RECORDS SUMMARY | 2025-01-06 07:24 | XMS_ITS | CONTINUITY OF CARE DOCUMENT ---
Author Name mariela sierra Address Unknown Organization [facility] Address [address] [place] [address] Phone [phone] Care Team Providers Care Cloth Examiner Hand Name Role Phone Newton Wong MD Unavailable ORIANA SEO MD Unavailable [phone] ORIANA SEO MD Unavailable [phone] PROBLEMS Condition Status Date Provider Notes CHEST PAIN-TYPE TO BE DETERMINED completed - Newton Wong MD Family History of CVA or Stroke: active ? Newton Wong MD Family History of Hypertension: active ? Jevon Wong MD Palpitations active Newton Wong MD Back pain active Newton Wong MD ENCOUNTERS Date Type Provider Location Encounter Diag nosis - In-person encounter Office Visit Newton Wong MD [facility] Back pain - In-person encounter Office Visit Newton Wong MD [facility] - In-person encounter Office Visit Newton Wong MD [facility] - In-person encounter Office Visit Newton Wong MD [facility] CHEST PAIN-TYPE TO BE DETERMINEDFamily History of CVA or Stroke:Family History of Hypertension:Palpitation s - In-person encounter Office Visit Newton Wong MD [facility] VITAL SIGNS Date Observation Value Provider [...] Conrad respiratory rate E&M 16 /min Felipe Conrad weight E&M 243.01 [lb_av] Felipe Mainr an [...] Payer name Policy type / Coverage type [place] red constitution party ID RUBEN MEDICAID (2) Medicaid [id number] ADVANCE DIRECTIVES Name Date DISCUSSED - NO DECISION MADE TREATMENT PLAN Date Name Performer Cardiology follow up :Per Dr. Tomas shipley. Newton Wong MD Cardiology follow up :No further workup required. eNwton Wong MD Cardiology Newton Wong MD follow,echo Newton Wong MD Date Name Complete Echo Holter Monitor 24 Hr Stress Test - Routin e Complete Echo HISTORY OF PROCEDURES Procedure Date Procedure Name Provider Procedure Notes S tatus EKG Newton Wong MD completed SNOMED-CT: 65663304 Physical Exam, Performed: Pulse Exam of Foot Newton Wong MD completed EKG Newton Wong MD completed SNOMED-CT: 176566845 621180 Current Medications Documented Newton Wong MD completed EKG Newton Wong MD completed EKG Newton Wong MD completed
--- OUTSIDE RECORDS SUMMARY | 2025-01-06 07:25 | XMS_ITS | Continuity of Care Document ---
Author Organization [facility] Address [address] [place] [place] [address] [place] [address] Phone Care Team Providers Care Industrial Trainer Name Role Phone George Goodman MD Unavailable Unavailable Allergies, Adverse Reactions, Alerts Substance Reaction Status Criticality No Known Allergies Active No Inform ation Procedures Procedure Date OFFICE/OUTPATIENT VISIT, [facility] Advance Directives Directive Yes / No Effective Date File Name No Information Encounters Encounter Description Practice Location Reason(s) For Visit Diagnoses Date Provider Providers Copied on Encounter OFFICE/OUTPAT IENT VISIT, [facility], [address], [address], [place] tel:[phone] [facility] back pain (chief complaint) LumbagoPain in joint involving lower leg Rex Vazquez. [address], [address] [place], [address], [place]. tel:[phone] Family History Family Member Type Diagnosis Age At Onset Brother Problem (finding) Alive and well Father Problem (finding) Unknown Disease Mother Problem (finding) Stroke Payers Payer name Insurance type Covered constitution party ID Authoriza tion(s) No Information Social History [...] Mental Status Date Cognitive Assessment Orientation - Chapin ed to time, place, person, situation.
[2025-01-06 08:02] LABS: Basophils Absolute Auto 0.1 K/mm3 (0.0-0.1); Basophils Percent Auto 0.8 % (0.2-1.2); Eosinophils Absolute Auto 0.1 K/mm3 (0-0.3); Eosinophils Percent Auto 2.4 % (0-4.4); Hematocrit 39.3 % (37.0-47.0); Hemoglobin 12.6 g/dL (12.0-15.0); Immature Granulocyte Absolute 0.01 K/mm3 (0.00-0.031); Immature Granulocyte Percent A 0.2 % (0-0.5); Lymphocytes Absolute Auto 3.18 K/mm3 (0.9-3.2); Lymphocytes Percent Auto 53.4 % (18.3-44.2); Mean Corpuscular HGB Conc 32.1 g/dl (32-36); Mean Corpuscular Hemoglobin 27.3 pg (26-34); Mean Corpuscular Volume 85.1 fl (80-100); Mean Platelet Volume 10.6 fl (7.4-10.4); Monocytes Absolute Auto 0.4 K/mm3 (0.1-0.6); Monocytes Percent Auto 6.7 % (2.6-8.5); Neutrophils Absolute Auto 2.2 K/mm3 (1.3-6.7); Neutrophils Percent Auto 36.5 % (45.5-73.1); Platelet Count Result 260 k/mm3 (150-375); Red Blood Count 4.62 M/mm3 (4.2-5.4); Red Cell Distribution Width 13.2 % (11.5-14.5)
[2025-01-06 08:17] LABS: Alanine Aminotransferase 22 U/L (6-35); Albumin Level 4.4 g/dL (3.5-5.1); Alkaline Phosphatase 73 U/L (38-126); Anion Gap 8 mmol/L (4-12); Aspartate Amino Transferase 25 U/L (14-36); Bilirubin,Total 0.9 mg/dL (0.2-1.3); Blood Urea Nitrogen 16 mg/dL (7-17); Calcium 9.7 mg/dL (8.4-10.2); Carbon Dioxide 27 mmol/L (22-30); Chloride 106 mmol/L (98-107); Cholesterol 189 mg/dL (0-200); Estimated Glomerular Filt Rate > 60; Glucose 122 mg/dL (65-110); HDL Direct 39 mg/dL; Potassium 3.9 mmol/L (3.4-5.0); Sodium 141 mmol/L (137-145); Triglycerides 93 mg/dL (<150)
[2025-01-06 08:28] LABS: LDL Cholesterol Direct 105 mg/dL
[2025-01-06 08:40] LABS: Hemoglobin A1C 6.1 % (<5.7)
[2025-01-06 09:11] LABS: Creatinine Urine 212.7 mg/dL
[2025-01-06 09:16] LABS: MALB Creatinine Ratio 4.8 mg/g (0-30); Microalbumin Urine Random 10.3 mg/L (0-16.7)
[2025-01-06 09:28] LABS: Hepatitis C Virus Antibody Negative (Negative)
== END 2025-01-06 07:21 | disposition home or self-care (01) ==
PROVIDERS: PCP Family Medicine; Visit Provider Nurse Practitioner Obstetrics & Gynecology
DX: R05.3 Chronic cough (principal); I10 Essential (primary) hypertension; E78.5 Hyperlipidemia, unspecified; R73.01 Impaired fasting glucose; J45.30 Mild persistent asthma, uncomplicated; N93.9 Abnormal uterine and vaginal bleeding, unspecified; Z11.59 Encounter for screening for other viral diseases
CPT/HCPCS: 36415; 71046; 80053; 80061; 82043; 83001; 83036; 84443; 85025; 86803

== ENCOUNTER 2025-01-22 13:57 | Outpatient (CLI) | payer OTHER, SELFPAY ==
--- NOTE | ~2025-01-22 | US_ITS ---
EXAM: PELVIC ULTRASOUND HISTORY: N93.9 - Abnormal uterine and vaginal bleeding, unspecified 6 para 2 COMPARISON: 06/18/2018. FINDINGS: UTERUS: 7.6 x 4.9 x 6.3 cm. The uterus is retroverted and retroflexed The endometrial complex measures 4 mm. RIGHT OVARY: The right ovary is unremarkable in echogenicity and size measuring 1.8 x 2.9 x 1.8 cm. Dopplerable flow is identified. LEFT OVARY: Within the left adnexa is an oval-shaped focus of mixed echogenicity, possibly the left ovary. This focus which presumably represents the left ovary measures 1.1 x 2.4 x 1.2 cm Dopplerable flow is identified. No free fluid is identified within the pelvis. IMPRESSION: Indeterminate focus within the left hemipelvis, possibly the left ovary. Otherwise unremarkable sonographic evaluation of the pelvis, as detailed above Reviewed, dictated and finalized at location A.
--- OUTSIDE RECORDS SUMMARY | 2025-01-22 15:07 | XMS_ITS | Data Portability ---
Author Organization [place] [facility] [place] [employer], Main Office Address [address] [place] [address] Care Team Providers Care Furnace Tapper Name Role Phone ORIANA SEO Primary Care [...] tenderness over trochanteric bursa palpation. She has somr-ju-nqtykoxw weakness with abductor testing associated with with [...] pelvis, unilateral 2022 023 [email or web address] [place], [address] [place] [address], [place], [address], 16:03:18 Medication Orders None recorded. Patient TargetsNo targets recorded. Patient InstructionsNo instructions recorded. Reason for Referral None Reported. Results Created Date Observation Date Name Description Value Unit Range Abnormal Flag Note LastModifiedBy Organization Detail LastModifiedTime 09/25/1910/12/2021 XR, lumba r spine No observ ation record ed. [id number] Not Available 10/07/2022 13:31:52 09/25/1907/17/2021 XR, lumba r spine No observ ation record ed. [email or web address]. [id number] Not Available 10/07/2022 13:31:52 09/25/19 23 07/17/2021 XR, sacru m + coccy x No observ ation record ed. [email or web address]. [id number] Not Available 10/07/2022 13:31:52 09/25/19 23 12/03/2017 XR, shoul madisyn No observ ation record ed. [email or web address]. [id number] Not Available 10/07/2022 13:31:52 09/25/19 23 04/19/2017 XR, hip + pelvi s, unila teral , 2 or 3 view No observ ation record ed. [email or web address]. [id number] Not Available 10/07/2022 13:31:52 09/25/19 23 04/19/2017 XR, knee, 3 view No observ ation record ed. [email or web address]. [id number] Not Available 10/07/2022 13:31:52 09/25/19 23 04/19/2017 XR, femur , 2 or more view No observ ation record ed. [email or web address]. [id number] Not Available 10/07/2022 13:31:52 09/25/1907/15/2022 XR, knee, 1 or 2 view No observ ation record ed. [email or web address]. [id number] Not Available 10/07/2022 13:31:52 10/23/19 XR, hip + pelvi s, unila teral No observ ation record ed. [email or web address] [address], [place], [address], 10/22/2022 12:02:45 Result Notes None recorded. Problems Name Problem SNOMED Code Status Onset Date Resolution Date Notes Provider Name and Address Organization Details Recorded Time Knee pain Active Not Available [facility] 3 13:30:18 Pain of right hip joint 1993249491220 02 Active 2022 Kaci Sujit RMRoxie null, [facility] 3 10:53:58 Trochanter ic bursitis of right hip 1283324849240 00 Active 2022 Katlin Pro CMA null, [facility] 3 12:13:34 Problem Notes None recorded. [...] Updated DateTime 10/22/2022 175.26 cm 41.5 kg/m2 608892.46 g RAVIN Kelley Dalia [place] [employer] [facility] 10/22/2022 11:37:42 Date Recorded Body height Provider Name an d Address Organization Details Last Updated DateTime 12/03/2022 175.26 cm RAVIN Kelley - AHDalia [place] [employer] [facility] 12/03/2022 10:31:46 Social History None recorded. Functional Status None recorded. Mental Status None recorded. Family History Nothing Reported. Medical History No medical history recorded. Gynecological HistoryNo gynecological history recorded. Obstetrics History GPAL:G 0 P 0 0 0 0 Past Encounters Encounter ID Performer Location Encounter Start Date Encounter Closed Date Diagnosis/Indication Diagnosis SNOMED-CT Code Diagnosis ICD10 Code Diagnosis Note [id number] Galileo Sandoval MD [facility] [address] 10/22/2022 10:28:32 10/22/2022 12:12:35 Pain of right hip joint 0480825272 62232 M25.551 [id number] Galileo Sandoval MD [facility] [address] 12/03/2022 10:27:32 12/03/2022 10:53:11 Trochanteric bursitis of right hip 1983192461 34808 M70.61 Health Concerns Section Related Observation LastModified by Organization Detai ls LastModified Time None Recorded Concern Status LastModified by Organization Details LastModified Time None Recorded Advance Directives Directive None Recorded Payers Insurance Date Sequence Insurance Name Policy Number Policy Raymond Covered Member ID Raymond Member ID Guarantor Name 04/17/2024 1 [facility] ON OR AFTER 21 (MEDICAID REPLACEMENT - HMO) Bhupinder Fuller [id number] Bhupinder Fuller OBGyn Episode No OBEpisode recorded.
--- OUTSIDE RECORDS SUMMARY | 2025-01-22 15:07 | XMS_ITS | Continuity of Care Document ---
Author Organization [facility] Address [address] [place] [address] [place] [address] Phone Care Team Providers Care Wardrobe Image Consultant Name Role Phone George Goodman MD Unavailable Unavailable Allergies, Adverse Reactions, Alerts Substance Reaction Status Criticality No Known Allergies Active No Inform ation Procedures Procedure Date OFFICE/OUTPATIENT VISIT, [facility] Advance Directives Directive Yes / No Effective Date File Name No Information Encounters Encounter Description Practice Location Reason(s) For Visit Diagnoses Date Provider Providers Copied on Encounter OFFICE/OUTPAT IENT VISIT, [facility], [address] [place], [address], [place] tel:[phone] [facility] back pain (chief complaint) LumbagoPain in joint involving lower leg Rex Vazquez. [address], [address] [place], [place], [address], [place]. tel:[phone] Family History Family Member Type Diagnosis Age At Onset Brother Problem (finding) Alive and well Father Problem (finding) Unknown Disease Mother Problem (finding) Stroke Payers Payer name Insurance type Covered alliance party ID Authoriza tion(s) No Information Social [...] Mental Status Date Cognitive Assessment Orientation - Oak ed to time, place, person, situation.
--- OUTSIDE RECORDS SUMMARY | 2025-01-22 15:07 | XMS_ITS | Clinical Summary ---
Author Organization [facility] Health Address [address] [place] [address] Care Team Providers Care Hull Builder Name Role Phone Unavailable Primary Care Provider Unavailabl e Source Comments [facility],non-owned Affiliates and Associated Physician Practices is amultiple site organization consisting of ambulatory clinics and hospital sitesin [place], [place], [place] and [place]. This disclosure is being madepursuant to the Care Everywhere program and may not contain all information available regarding this patient. Last updated 18.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
--- OUTSIDE RECORDS SUMMARY | 2025-01-22 15:07 | XMS_ITS | CONTINUITY OF CARE DOCUMENT ---
Author Name mariela sierra Address Unknown Organization [facility] Address [address] [place] [address] Phone [phone] Care Team Providers Care Stain Dipper Name Role Phone Newton Wong MD Unavailable ORIANA SEO MD Unavailable [phone] ORIANA SEO MD Unavailable [phone] PROBLEMS Condition Status Date Provider Notes CHEST PAIN-TYPE TO BE DETERMINED completed - Newton Wong MD Family History of CVA or Stroke: active ? Newton Wong MD Family History of Hypertension: active ? Jevon Wong MD Palpitations active Newton Wong MD Back pain active Newton Wong MD ENCOUNTERS Date Type Provider Location Encounter Diag nosis - In-person encounter Office Visit Newton Wong MD [place] [facility] Back pain - In-person encounter Office Visit Newton Wong MD [place] [facility] - In-person encounter Office Visit Newton Wong MD [place] [facility] - In-person encounter Office Visit Newton Wong MD [place] [facility] CHEST PAIN-TYPE TO BE DETERMINEDFamily History of CVA or Stroke:Family History of Hypertension:Palpitation s - In-person encounter Office Visit Newton Wong MD [place] [facility] VITAL SIGNS Date Observation Value Provider [...] Payer name Policy type / Coverage type [place] red alliance party ID RUBEN MEDICAID (2) Medicaid [id number] ADVANCE DIRECTIVES Name Date DISCUSSED - NO [...] tatus EKG Newton Wong MD completed SNOMED-CT: 26373141 Physical Exam, Performed: Pulse Exam of Foot Newton Wong MD completed EKG Newton Wong MD completed SNOMED-CT: 741429215 249363 Current Medications Documented Newton Wong MD completed EKG Newton Wong MD completed EKG Newton Wong MD completed
== END 2025-01-22 13:58 | disposition home or self-care (01) ==
PROVIDERS: PCP Family Medicine; Visit Provider Nurse Practitioner Obstetrics & Gynecology
DX: N93.9 Abnormal uterine and vaginal bleeding, unspecified (principal); N94.9 Unspecified condition associated with female genital organs and menstrual cycle
CPT/HCPCS: 76830; 76856

== ENCOUNTER 2025-06-07 16:09 | Outpatient (CLI) | payer OTHER, SELFPAY ==
--- OUTSIDE RECORDS SUMMARY | 2025-06-07 16:13 | XMS_ITS | Clinical Summary ---
Author Organization [facility] Health Address [address] [place] [address] Care Team Providers Care Rehab Tech Name Role Phone Unavailable Primary Care Provider Unavailabl e Source Comments [facility],non-owned Affiliates and Associated Physician Practices is amultiple site organization consisting of ambulatory clinics and hospital sitesin [place], [place] and [place]. This disclosure is being madepursuant to the Care Everywhere program and may not contain all information available regarding this patient. 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
--- OUTSIDE RECORDS SUMMARY | 2025-06-07 16:13 | XMS_ITS | Data Portability ---
Author Organization [place] [facility] [employer], Main Office Address [address] [place] [address] Care Team Providers Care Singe Machine Operator Name Role Phone OIRANA SEO Primary Care Provider [phone] ORIANA SEO Referring Provider Assessment Encounter Date [...] tenderness over trochanteric bursa palpation. She has [id number] weakness with abductor testing associated with with [...] hip + pelvis, unilateral 2022 023 [email or web address] [facility], [address] [place] [address], [address], [place], [address], 16:03:18 Medication Orders None recorded. Patient TargetsNo targets recorded. Patient InstructionsNo instructions recorded. Reason for Referral None Reported. Results Created Date Observation Date Name Description Value Unit Range Abnormal Flag Note LastModifiedBy Organization Detail LastModifiedTime 09/25/1910/12/2021 XR, lumba r spine No observ ation record ed. MIGRATION. [id number] Not Available 10/07/2022 13:31:52 09/25/1907/17/2021 XR, lumba r spine No observ ation record ed. MIGRATION. [id number] Not Available 10/07/2022 13:31:52 09/25/1907/17/2021 XR, sacru m + coccy x No observ ation record ed. MIGRATION. [id number] Not Available 10/07/2022 13:31:52 09/25/19 23 12/03/2017 XR, shoul madisyn No observ ation record ed. MIGRATION. [id number] Not Available 10/07/2022 13:31:52 09/25/19 23 04/19/2017 XR, hip + pelvi s, unila teral , 2 or 3 view No observ ation record ed. MIGRATION. [id number] Not Available 10/07/2022 13:31:52 09/25/19 23 04/19/2017 XR, knee, 3 view No observ ation record ed. MIGRATION. [id number] Not Available 10/07/2022 13:31:52 09/25/19 23 04/19/2017 XR, femur , 2 or more view No observ ation record ed. MIGRATION. [id number] Not Available 10/07/2022 13:31:52 09/25/1907/15/2022 XR, knee, 1 or 2 view No observ ation record ed. MIGRATION. [id number] Not Available 10/07/2022 13:31:52 10/23/19 XR, hip + pelvi s, unila teral No observ ation record ed. [email or web address] [facility] [address] [place] [address], [address], [place], [address], 10/22/2022 12:02:45 Result Notes None recorded. Problems Name Problem SNOMED Code Status Onset Date Resolution Date Notes Provider Name and Address Organization Details Recorded Time Knee pain Active Not Available [facility] 3 13:30:18 Pain of right hip joint 1170311150175 02 Active 2022 Kaci Sujit RMRoxie null, [facility] 3 10:53:58 Trochanter ic bursitis of right hip 4140469662878 00 Active 2022 Katlin Pro, [employer] null, [facility] 3 12:13:34 Problem Notes None recorded. [...] (0.083 %) solution for nebulizatio n USE 1 VIAL VIA NEBULIZER EVERY 4 HOURS NEEDED active Not Available [...] completed Not Available Not Available Not Available oxycodone-a cetaminophe n 5 mg-325 mg tablet TAKE 1 TABLET BY MOUTH EVERY 6 HOURS NEEDED PAIN active Not Available Not Available No t Available baclofen 10 mg tablet TAKE 1 TABLET BY MOUTH TWICE DAILY NEEDED active Not Available Not Available No t Available amlodipine 10 mg tablet TAKE 1 TABLET BY MOUTH DAILY active Not Available Not Available No [...] Available Not Available No t Available ibuprofen 600 mg tablet TAKE 1 TABLET BY MOUTH EVERY 6 HOURS NEEDED FOR PAIN active Not Available Not Available No t [...] 875 mg-potassiu m clavulanate 125 mg tablet TAKE 1 TABLET BY MOUTH TWICE DAILY FOR 10 DAYS 05/21 completed Not Available Not Available Not Available [...] Ag Self Test kit TEST DIRECTED TODAY active Not Available Not Available No t Available Vitals Date Recorded Body height Body mass index (BMI) Body weight Provider Name and Address Organization Details Last Updated DateTime 10/22/2022 175.26 cm 41.5 kg/m2 048673.46 g Kaci Beckett Roxie [facility] [employer] [facility] 10/22/2022 11:37:42 Date Recorded Body height Provider Name an d Address Organization Details Last Updated DateTime 12/03/2022 175.26 cm Kaci Beckett [facility] 12/03/2022 10:31:46 Social History None recorded. Functional Status None recorded. Mental Status None recorded. Family History Nothing Reported. Medical History No medical history recorded. Gynecological HistoryNo gynecological history recorded. Obstetrics History GPAL:G 0 P 0 0 0 0 Past Encounters Encounter ID Performer Location Encounter Start Date Encounter Closed Date Diagnosis/Indication Diagnosis SNOMED-CT Code Diagnosis ICD10 Code Diagnosis IMO Codes Diagnosis Note [id number] Galileo Sandoval MD [facility] [address] 10/22/2022 10:28:32 10/22/2022 12:12:35 Pain of right hip joint 6789405155 60987 M25.551 [id number] Galileo Sandoval MD [facility]_[address] [address] 12/03/2022 10:27:32 12/03/2022 10:53:11 Trochanteric bursitis of right hip [id number] 75130 M70.61 Health Concerns Section Related Observation LastModified by Organization Detai ls LastModified Time None Recorded Concern Status LastModified by Organization Details LastModified Time None Recorded Advance Directives Directive None Recorded Payers Insurance Date Sequence Insurance Name Policy Number Policy Raymond Covered Member ID Raymond Member ID Guarantor Name 05/24/2025 1 [facility] - DOS ON OR AFTER 21 (MEDICAID REPLACEMENT - HMO) Bhupinder Fuller [id number] Bhupinder Fuller OBGyn Episode No OBEpisode recorded.
[2025-06-07 16:56] LABS: Hematocrit 41.2 % (37.0-47.0); Hemoglobin 13.2 g/dL (12.0-15.0); Immature Granulocyte Percent A 0.3 % (0-0.5); Lymphocytes Absolute Auto 2.90 K/mm3 (0.9-3.2); Mean Corpuscular HGB Conc 32.0 g/dl (32-36); Mean Corpuscular Hemoglobin 26.9 pg (26-34); Mean Corpuscular Volume 84.1 fl (80-100); Nucleated Red Blood Cells Absolute Auto 0.000 K/mm3 (0.0-0.012); Nucleated Red Blood Cells Perc 0.0 % (0.0-0.2); Platelet Count Result 277 k/mm3 (150-375); Red Blood Count 4.90 M/mm3 (4.2-5.4); White Blood Count 6.2 K/mm3 (4.5-10.0)
[2025-06-07 17:06] LABS: Alanine Aminotransferase 18 U/L (6-35); Albumin Level 4.8 g/dL (3.5-5.1); Alkaline Phosphatase 93 U/L (38-126); Anion Gap 10 mmol/L (4-12); Aspartate Amino Transferase 22 U/L (14-36); Bilirubin,Total 1.0 mg/dL (0.2-1.3); Blood Urea Nitrogen 12 mg/dL (7-17); Calcium 9.6 mg/dL (8.4-10.2); Carbon Dioxide 26 mmol/L (22-30); Chloride 105 mmol/L (98-107); Cholesterol 194 mg/dL (0-200); Estimated Glomerular Filt Rate > 60; Glucose 118 mg/dL (65-110); HDL Direct 42 mg/dL; Magnesium 2.0 mg/dL (1.6-2.3); Potassium 3.6 mmol/L (3.4-5.0); Sodium 141 mmol/L (137-145); Total Protein 8.5 g/dL (6.3-8.2); Triglycerides 175 mg/dL (<150)
[2025-06-07 17:34] LABS: Hemoglobin A1C 6.1 % (<5.7)
[2025-06-07 17:48] LABS: Thyroid Stimulating Hormone Reflex 1.040 uIU/mL (0.465-4.68)
[2025-06-07 18:18] LABS: Vitamin B12 286.0 pg/mL (239-931)
== END 2025-06-07 16:10 | disposition home or self-care (01) ==
LOC: ANHLAB 16:11
PROVIDERS: PCP Family Medicine; Visit Provider Nurse Practitioner Family
DX: R53.83 Other fatigue (principal); E78.5 Hyperlipidemia, unspecified; Z13.1 Encounter for screening for diabetes mellitus
CPT/HCPCS: 36415; 80053; 80061; 82306; 82607; 82746; 83036; 83735; 84443; 85025

== ENCOUNTER 2025-06-26 16:19 | Outpatient (CLI) | payer OTHER, SELFPAY ==
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
== END 2025-06-26 16:20 | disposition home or self-care (01) ==
PROVIDERS: PCP Family Medicine; Visit Provider Nurse Practitioner Family
DX: M51.369 Other intervertebral disc degeneration, lumbar region without mention of lumbar back pain or lower extremity pain (principal)
CPT/HCPCS: 72072; 72100